=== PATIENT | female | born 1975 | race Caucasian/White ===

== ENCOUNTER 2020-04-14 11:30 | Inpatient (IN) | payer OTHER ==
[~2020-04-14] VITALS: Ht 157.5 cm; Wt 42.6 kg
== END 2020-04-24 11:54 | DRG 735 ==
LOC: OB/GYN 04-15 11:30 → O/R 04-22 05:40 → OB/GYN 04-22 07:00
PROVIDERS: ADMIT Obstetrics & Gynecology Gynecologic Oncology; ATTEND Obstetrics & Gynecology Gynecologic Oncology
PROC: 0UT90ZZ Resection of Uterus, Open Approach (ICD-10-PCS; 2020-04-22)
PROC: 0DBW0ZZ Excision of Peritoneum, Open Approach (ICD-10-PCS; 2020-04-22)
PROC: 0UT70ZZ Resection of Bilateral Fallopian Tubes, Open Approach (ICD-10-PCS; 2020-04-22)
PROC: 0UT20ZZ Resection of Bilateral Ovaries, Open Approach (ICD-10-PCS; 2020-04-22)
PROC: 0DTU0ZZ Resection of Omentum, Open Approach (ICD-10-PCS; 2020-04-22)
PROC: 3E1M38Z Irrigation of Peritoneal Cavity using Irrigating Substance, Percutaneous Approach (ICD-10-PCS; 2020-04-22)
PROC: 07TC0ZZ Resection of Pelvis Lymphatic, Open Approach (ICD-10-PCS; principal; 2020-04-22 07:00)
DX: C56.1 Malignant neoplasm of right ovary (principal); N80.0 Endometriosis of uterus; N83.12 Corpus luteum cyst of left ovary; N80.1 Endometriosis of ovary; Z20.828 Contact with and (suspected) exposure to other viral communicable diseases